=== PATIENT | female | born 1990 | race Caucasian/White ===

== ENCOUNTER 2019-05-16 01:43 | Emergency (ER) | payer OTHER ==
--- NOTE | 2019-05-16 01:47 | ERPHSYRPT ---
- History of Present Illness Time Seen by Provider: 05/16/19 01:47 Allergies/Adverse Reactions: amoxicillin Allergy (Verified 10/09/14 17:22) azithromycin Allergy (Verified 10/09/14 17:22) Penicillins Allergy (Verified 10/09/14 17:22) Home Medications: Hydrocodone Bit/Acetaminophen [Hydrocodon-Acetaminophn 10-325] 1 each PO Q4- 6HPRN PRN 10/09/14 [History] Promethazine HCl 25 mg [Phenergan 25 mg] 12.5 mg PO TIDPRN PRN 10/09/14 [ History] Valacyclovir HCl [Valtrex] 1,000 mg PO DAILY 10/09/14 [History] Hx Tetanus, Diphtheria Vaccination/Date Given: Yes (UNKNOWN) Hx Influenza Vaccination/Date Given: No Hx Pneumococcal Vaccination/Date Given: No - Past Medical History Pertinent Past Medical History: Yes Other Medical History: PLUERISY - Past Surgical History Past Surgical History: No - Social History Smoking Status: Never smoker Exposure to second hand smoke: Yes Drug Use: none Patient Lives Alone: No - Departure Referrals: GILL GUERRA [Primary Care Provider] -
[2019-05-16 02:02] VITALS: BP 105/65; O2SAT 98
--- NOTE | 2019-05-16 02:09 | ERPHSYRPT ---
- History of Present Illness Time Seen by Provider: 05/16/19 01:47 Source: patient, family Exam Limitations: clinical condition Physician History: 28 y/o white female s/p tonsillectomy and adenoidectomy 2 days ago. had sudden onset of bleeding. wanted evaluation. pt on norco tabs Timing/Duration: abrupt onset, this morning Severity: mild ENT Location: throat Prearrival Treatment: no prearrival treatment Modifying Factors: Improves With: other (swallowing hurts) Associated Symptoms: poor fluid intake, poor solids intake, sore throat Allergies/Adverse Reactions: amoxicillin Allergy (Verified 05/16/19 02:09) azithromycin Allergy (Verified 05/16/19 02:09) Penicillins Allergy (Verified 05/16/19 02:09) Home Medications: Hydrocodone Bit/Acetaminophen [[place] 7.5-325 Tablet] 1 each PO Q6H PRN PRN 05/16 [History] Omeprazole 20 mg PO DAILY 05/16/19 [History] Hx Tetanus, Diphtheria Vaccination/Date Given: Yes (UNKNOWN) Hx Influenza Vaccination/Date Given: No Hx Pneumococcal Vaccination/Date Given: No - Review of Systems Constitutional: No Symptoms Eyes: No Symptoms Ears, Nose, & Throat: Throat Pain (post op bleed) Respiratory: No Symptoms Cardiac: No Symptoms Abdominal/Gastrointestinal: No Symptoms Genitourinary Symptoms: No Symptoms Musculoskeletal: No Symptoms Skin: No Symptoms Neurological: No Symptoms Psychological: No Symptoms Endocrine: No Symptoms Hematologic/Lymphatic: No Symptoms Immunological/Allergic: No Symptoms All Other Systems: Reviewed and Negative - Past Medical History Pertinent Past Medical History: Yes Neurological History: No Pertinent History ENT History: No Pertinent History Cardiac History: No Pertinent History Respiratory History: No Pertinent History Endocrine Medical History: No Pertinent History Musculoskeletal History: No Pertinent History GI Medical History: No Pertinent History History: No Pertinent History Psycho-Social History: No Pertinent History Female Reproductive Disorders: No Pertinent History Other Medical History: PLUERISY - Past Surgical History Past Surgical History: No Neuro Surgical History: No Pertinent History Cardiac: No Pertinent History Respiratory: No Pertinent History Gastrointestinal: No Pertinent History Genitourinary: No Pertinent History Musculoskeletal: No Pertinent History Female Surgical History: No Pertinent History - Social History Smoking Status: Never smoker Exposure to second hand smoke: Yes Drug Use: none Patient Lives Alone: No - Nursing Vital Signs Nursing Vital Signs: Initial Vital Signs Temperature 97.4 F 05/16/19 01:53 Pulse Rate 99 H 05/16/19 01:53 Respiratory Rate 16 05/16/19 01:53 Blood Pressure 105/65 05/16/19 01:53 O2 Sat by Pulse Oximetry 97 05/16/19 01:53 Pain Scale Pain Intensity 6 - Physical Exam General Appearance: no apparent distress, alert, anxiety Eye Exam: bilateral eye: normal inspection, PERRL, EOMI Ear Exam: bilateral ear: auricle normal Nasal Exam: normal inspection Throat Exam: pharynx tenderness (post op tonsillectomy and adenoidectomy surgical site. no active bleeding. fibrinous exudate present) Neck Exam: normal inspection, non-tender, supple, full range of motion, trachea midline Cardiovascular/Respiratory Exam: chest non-tender Abdominal Exam: non-tender Neurologic Exam: alert, oriented x 3, cooperative, card sorter II-XII nml as tested Skin Exam: normal color, warm, dry SpO2: 98 O2 Delivery: Room Air - Course Nursing assessment & vital signs reviewed: Yes Ordered Tests: Active Orders 24 hr Category Date Time Status CBC W DIFF Stat Lab 05/16/19 02:22 Completed Medication Summary Discontinued Medications Generic Name Dose Route Start Last Admin Trade Name Freq PRN Reason Stop Dose Admin Hydrocodone Bitart/Acetaminophen 10 ml 05/16/19 02:09 Hydrocodone-Acetamin 2.5-108/5 Ml Solution PO 05/16/19 02:10 STAT STA Hydrocodone Bitart/Acetaminophen Confirm 05/16/19 02:19 Hydrocodone-Acetamin 2.5-108/5 Ml Solution Administered 05/16/19 02:20 Dose 10 ml .ROUTE .STK-MED ONE Lidocaine HCl 10 ml 05/16/19 02:09 Xylocaine Viscous 2% 20 Ml Cup PO 05/16/19 02:10 STAT ONE Lidocaine HCl Confirm 05/16/19 02:21 Xylocaine Hcl Viscous * Administered 05/16/19 02:22 Dose 1 ml .ROUTE .STK-MED ONE Lab/Rad Data: Laboratory Result Diagrams 05/16/19 02:22 Laboratory Results 05/16/19 Range/Units 02:22 WBC 7.4 (4.0-10.5) K/mm3 RBC 4.92 (4.1-5.4) M/mm3 Hgb 13.9 (12.0-16.0) gm/dl Hct 42.1 (35-47) % MCV 85.6 (78-100) fl MCH 28.3 (26-32) pg MCHC 33.0 (32-36) g/dl RDW 13.9 (11.5-14.0) % Plt Count 318 (150-450) K/mm3 MPV 9.3 (6-9.5) fl Gran % 51.4 (36.0-66.0) % Eos # (Auto) 0.03 (0-0.5) Absolute Lymphs (auto) 2.77 (1.0-4.6) Absolute Monos (auto) 0.76 (0.0-1.3) Lymphocytes % 37.5 (24.0-44.0) % Monocytes % 10.3 (0.0-12.0) % Eosinophils % 0.4 (0.00-5.0) % Basophils % 0.4 (0.0-0.4) % Absolute Granulocytes 3.80 (1.4-6.9) Basophils # 0.03 (0-0.4) - Progress Progress: improved Counseled pt/family regarding: lab results, diagnosis, need for follow-up - Departure Departure Disposition: Home Clinical Impression: Post-operative complication Condition: Stable Critical Care Time: No Referrals: GILL GUERRA [Primary Care Provider] - Additional Instructions: drink plenty of cold liquids. stop norco pills. use liquid hydrocodone for pain. call your ENT doctor this morning for further management. Prescriptions: Lidocaine HCl Viscous [XYLOCAINE HCl Viscous *] 10 ml PO Q8H PRN PRN #100 ml PRN Reason: Mild To Moderate Pain Hydrocodone Bit/Acetaminophen [Hydrocodone-Acetaminophen Soln] 10 ml PO Q6H # 120 ml
[2019-05-16] MEDS ORDERED: HYDROCODONE-ACETAMIN 2.5-108/5 ML SOLUTION ONE ×2 (02:19→02:54)
[2019-05-16] MEDS ORDERED: XYLOCAINE HCl Viscous ONE ×2 (02:21→02:54)
[2019-05-16] MEDS: HYDROCODONE-ACETAMIN 2.5-108/5 ML SOLUTION PO STA ×2 (02:23→03:09)
[2019-05-16] MEDS: XYLOCAINE VISCOUS 2% 20 ML CUP PO ONE (02:24)
[2019-05-16 02:25] LABS: BASOPHIL % 0.4 % (0.0-0.4); Basophil (Absolute #) 0.03 (0-0.4); Eosinophil % 0.4 % (0.00-5.0); Eosinophil (Absolute #) 0.03 (0-0.5); Hematocrit 42.1 % (35-47); Hemoglobin 13.9 gm/dl (12.0-16.0); Lymphocyte (Absolute #) 2.77 (1.0-4.6); Lymphocytes % 37.5 % (24.0-44.0); Mean Cell Volume 85.6 fl (78-100); Mean Corpuscular Hemoglobin 28.3 pg (26-32); Mean Platelet Volume 9.3 fl (6-9.5); Monocyte (Absolute #) 0.76 (0.0-1.3); Monocytes % 10.3 % (0.0-12.0); Neutrophil % 51.4 % (36.0-66.0); Platelet Count 318 K/mm3 (150-450); Red Blood Count 4.92 M/mm3 (4.1-5.4); Red Cell Distribution Width 13.9 % (11.5-14.0); White Blood Count 7.4 K/mm3 (4.0-10.5)
[2019-05-16] MEDS: XYLOCAINE HCl Viscous MM PRN (03:09)
[2019-05-16 03:14] VITALS: PULSE 92
== END 2019-05-16 03:20 | disposition home or self-care (01) ==
LOC: ED 01:43
DX: Z98.890 Other specified postprocedural states (principal); R04.1 Hemorrhage from throat
CPT/HCPCS: 36415; 85025; 99283; A9270-GY

== ENCOUNTER 2019-05-22 13:56 | Emergency (ER) | payer OTHER ==
[2019-05-22 15:01] LABS: INR 1.14 (0.8-3.0); PROTIME 12.9 SECONDS (9.95-12.35)
[2019-05-22 15:03] LABS: BASOPHIL % 0.4 % (0.0-0.4); Basophil (Absolute #) 0.02 (0-0.4); Eosinophil % 0.8 % (0.00-5.0); Eosinophil (Absolute #) 0.04 (0-0.5); Hematocrit 38.7 % (35-47); Hemoglobin 13.1 gm/dl (12.0-16.0); Lymphocyte (Absolute #) 1.63 (1.0-4.6); Lymphocytes % 31.8 % (24.0-44.0); Mean Cell Volume 83.6 fl (78-100); Mean Corpuscular Hemoglobin 28.3 pg (26-32); Mean Corpuscular Hgb Concent. 33.9 g/dl (32-36); Mean Platelet Volume 9.3 fl (6-9.5); Monocyte (Absolute #) 0.54 (0.0-1.3); Monocytes % 10.5 % (0.0-12.0); Neutrophil % 56.5 % (36.0-66.0); Platelet Count 280 K/mm3 (150-450); Red Blood Count 4.63 M/mm3 (4.1-5.4); Red Cell Distribution Width 13.4 % (11.5-14.0); White Blood Count 5.1 K/mm3 (4.0-10.5)
[2019-05-22 15:04] LABS: PTT 33.4 SECONDS (25.3-37.0)
[2019-05-22 15:07] LABS: ALBUMIN 3.8 g/dL (3.5-5.0); ALKALINE PHOSPHATASE 56 U/L (38-126); ANION GAP 12.2 MEQ/L (5-15); BLOOD UREA NITROGEN 6 mg/dL (7-17); CHLORIDE 100 mmol/L (98-107); Calcium 9.3 mg/dL (8.4-10.2); Carbon Dioxide 31 mmol/L (22-30); Creatinine 1 0.67 mg/dL (0.52-1.04); Glucose 115 mg/dL (74-106); Potassium 3.7 mmol/L (3.5-5.1); SGOT/AST 44 U/L (14-36); SGPT/ALT 46 U/L (0-35); SODIUM 140 mmol/L (137-145); Total Protein 7.5 g/dL (6.3-8.2)
[2019-05-22] MEDS ORDERED: HYDROCODONE-ACETAMIN 2.5-108/5 ML SOLUTION PO STA (16:20)
[2019-05-22] MEDS ORDERED: HYDROCODONE-ACETAMIN 2.5-108/5 ML SOLUTION ONE (16:23)
[2019-05-22 16:27] VITALS: BP 98/58; PULSE 75; O2SAT 97
--- NOTE | 2019-05-22 16:59 | ERPHSYRPT ---
- History of Present Illness Time Seen by Provider: 05/22/19 14:15 Source: patient Exam Limitations: clinical condition, other (patient is 10 days postop tonsillectomy and still says she is unable to speak or least indicates she can speak..) Patient Subjective Stated Complaint: sore throat Triage Nursing Assessment: Patient ambulated into ED and transferred self to bed. Patient A+O X3. Patient's skin pink, warm and dry. Patient complains of sore throat, right ear and neck pain since 3 days after her T+A surgery at in [place]. Patient has T+A surgery on May 13. Patient states the pain is constant stabbing,throbbing pain 01/19 that has gotten worse since her surgery. Patient also complains of her tongue hurting. 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) Modifying Factors: Improves With: nothing Associated Symptoms: ear pain (R), jaw pain, sore throat, difficulty swallowing , voice change (indicates she cannot speak) Allergies/Adverse Reactions: amoxicillin Allergy (Verified 05/22/19 14:18) azithromycin Allergy (Verified 05/22/19 14:18) Penicillins Allergy (Verified 05/22/19 14:18) Home Medications: Hydrocodone Bit/Acetaminophen [[place] 7.5-325 Tablet] 1 each PO Q6H PRN PRN 05/16 [History] Hx Tetanus, Diphtheria Vaccination/Date Given: Yes (UNKNOWN) Hx Influenza Vaccination/Date Given: Yes Hx Pneumococcal Vaccination/Date Given: No Immunizations Up to Date: Yes - Review of Systems Constitutional: No Fever, No Chills Eyes: No Symptoms Ears, Nose, & Throat: Ear Pain, Mouth Pain, Throat Pain, Painful Swallowing Respiratory: No Cough, No Dyspnea Cardiac: No Chest Pain, No Edema, No Syncope Abdominal/Gastrointestinal: No Abdominal Pain, No Nausea, No Vomiting, No Diarrhea Genitourinary Symptoms: No Dysuria Musculoskeletal: No Back Pain, No Neck Pain Skin: No Rash Neurological: No Dizziness, No Focal Weakness, No Sensory Changes Psychological: No Symptoms Endocrine: No Symptoms All Other Systems: Reviewed and Negative - Past Medical History Pertinent Past Medical History: Yes Neurological History: No Pertinent History ENT History: No Pertinent History Cardiac History: No Pertinent History Respiratory History: No Pertinent History Endocrine Medical History: No Pertinent History Musculoskeletal History: No Pertinent History GI Medical History: No Pertinent History History: No Pertinent History Psycho-Social History: No Pertinent History Female Reproductive Disorders: No Pertinent History Other Medical History: PLUERISY - Past Surgical History Past Surgical History: No Neuro Surgical History: No Pertinent History Cardiac: No Pertinent History Respiratory: No Pertinent History Gastrointestinal: No Pertinent History Genitourinary: No Pertinent History Musculoskeletal: No Pertinent History Female Surgical History: No Pertinent History Other Surgical History[place] [facility] [place] Smoking Status: Never smoker Exposure to second hand smoke: No Drug Use: none Patient Lives Alone: Yes - Female History Hx Last Menstrual Period: 1 month ago Hx Now: No - Nursing Vital Signs Nursing Vital Signs: Initial Vital Signs Temperature 98.0 F 05/22/19 14:18 Pulse Rate 86 05/22/19 14:18 Respiratory Rate 18 05/22/19 14:18 Blood Pressure 134/72 05/22/19 14:18 O2 Sat by Pulse Oximetry 98 05/22/19 14:18 Pain Scale Pain Intensity 7 - Physical Exam General Appearance: no apparent distress (and), alert Eye Exam: bilateral eye: PERRL, EOMI Nasal Exam: normal inspection Throat Exam: moist mucus membranes, pharynx swelling (were minimal and), tonsillar exudate (there is some small amount of eschar on the tonsillar beds), voice changes (says she can't swallow), No uvula swelling Neck Exam: supple Cardiovascular/Respiratory Exam: normal breath sounds, regular rate/rhythm Abdominal Exam: non-tender, soft Neurologic Exam: alert, oriented x 3, sensation nml, No motor deficits Skin Exam: normal color, warm, dry SpO2: 97 - CT Exams Soft Tissue Neck CT Interpretation: Tele-radiologist Report, Other (eessentially normal for postop minimal edema) Ordered Tests: Active Orders 24 hr Category Date Time Status NECK WITH CONTRAST [CT] Stat Exams 05/22/19 14:38 Ordered CBC W DIFF Stat Lab 05/22/19 14:38 Completed CMP Stat Lab 05/22/19 14:38 Completed HCG QUALITATIVE,SERUM Stat Lab 05/22/19 14:38 Completed PT INR [PROTIME WITH INR] Stat Lab 05/22/19 14:38 Completed PTT Stat Lab 05/22/19 14:38 Completed Medication Summary Discontinued Medications Generic Name Dose Route Start Last Admin Trade Name Edi PRN Reason Stop Dose Admin Hydrocodone Bitart/Acetaminophen 5 ml 05/22/19 16:20 05/22/19 16:24 Hydrocodone-Acetamin 2.5-108/5 Ml Solution PO 05/22/19 16:21 5 ml STAT STA Administration Hydrocodone Bitart/Acetaminophen Confirm 05/22/19 16:23 Hydrocodone-Acetamin 2.5-108/5 Ml Solution Administered 05/22/19 16:24 Dose 5 ml .ROUTE .[employer] Lab/Rad Data: Laboratory Result Diagrams 05/22/19 14:38 05/22/19 14:38 Laboratory Results 05/22/19 05/22/19 05/22/19 Range/Units 14:38 14:38 14:38 WBC (4.0-10.5) K/mm3 RBC (4.1-5.4) M/mm3 Hgb (12.0-16.0) gm/dl Hct (35-47) % MCV (78-100) fl MCH (26-32) pg MCHC (32-36) g/dl RDW (11.5-14.0) % Plt Count (150-450) K/mm3 MPV (6-9.5) fl Gran % (36.0-66.0) % Eos # (Auto) (0-0.5) Absolute Lymphs (auto) (1.0-4.6) Absolute Monos (auto) (0.0-1.3) Lymphocytes % (24.0-44.0) % Monocytes % (0.0-12.0) % Eosinophils % (0.00-5.0) % Basophils % (0.0-0.4) % Absolute Granulocytes (1.4-6.9) Basophils # (0-0.4) PT 12.9 H (9.95-12.35) SECONDS INR 1.14 (0.8-3.0) APTT 33.4 (25.3-37.0) SECONDS Sodium 140 (137-145) mmol/L Potassium 3.7 (3.5-5.1) mmol/L Chloride 100 (98-107) mmol/L Carbon Dioxide 31 H (22-30) mmol/L Anion Gap 12.2 (5-15) MEQ/L BUN 6 L (7-17) mg/dL Creatinine 0.67 (0.52-1.04) mg/dL Estimated GFR > 60.0 ML/MIN Glucose 115 H (74-106) mg/dL Calcium 9.3 (8.4-10.2) mg/dL Total Bilirubin 0.50 (0.2-1.3) mg/dL AST 44 H (14-36) U/L ALT 46 H (0-35) U/L Alkaline Phosphatase 56 (38-126) U/L Serum Total Protein 7.5 (6.3-8.2) g/dL Albumin 3.8 (3.5-5.0) g/dL Serum , Qual NEGATIVE (Negative) 05/22/19 Range/Units 14:38 WBC 5.1 (4.0-10.5) K/mm3 RBC 4.63 (4.1-5.4) M/mm3 Hgb 13.1 (12.0-16.0) gm/dl Hct 38.7 (35-47) % MCV 83.6 (78-100) fl MCH 28.3 (26-32) pg MCHC 33.9 (32-36) g/dl RDW 13.4 (11.5-14.0) % Plt Count 280 (150-450) K/mm3 MPV 9.3 (6-9.5) fl Gran % 56.5 (36.0-66.0) % Eos # (Auto) 0.04 (0-0.5) Absolute Lymphs (auto) 1.63 (1.0-4.6) Absolute Monos (auto) 0.54 (0.0-1.3) Lymphocytes % 31.8 (24.0-44.0) % Monocytes % 10.5 (0.0-12.0) % Eosinophils % 0.8 (0.00-5.0) % Basophils % 0.4 (0.0-0.4) % Absolute Granulocytes 2.90 (1.4-6.9) Basophils # 0.02 (0-0.4) PT (9.95-12.35) SECONDS INR (0.8-3.0) APTT (25.3-37.0) SECONDS Sodium (137-145) mmol/L Potassium (3.5-5.1) mmol/L Chloride (98-107) mmol/L Carbon Dioxide (22-30) mmol/L Anion Gap (5-15) MEQ/L BUN (7-17) mg/dL Creatinine (0.52-1.04) mg/dL Estimated GFR ML/MIN Glucose (74-106) mg/dL Calcium (8.4-10.2) mg/dL Total Bilirubin (0.2-1.3) mg/dL AST (14-36) U/L ALT (0-35) U/L Alkaline Phosphatase (38-126) U/L Serum Total Protein (6.3-8.2) g/dL Albumin (3.5-5.0) g/dL Serum , Qual (Negative) - Progress Progress: improved Counseled pt/family regarding: lab results, rad results - Departure Departure Disposition: Home Clinical Impression: Post-tonsillectomy pain Condition: Stable Critical Care Time: No Referrals: GILL GUERRA [Primary Care Provider] - Instructions: Sore Throat, Adult (DC) Additional Instructions: See your surgeon this week Prescriptions: Tramadol HCl 50 mg [Ultram 50 mg] 50 mg PO Q6H 3 Days #12 tablet MDD 4
--- NOTE | 2019-05-23 16:02 | XRAY ---
Indication: Neck and right ear pain. Status post tonsillectomy May 13, 2019. Multiple contiguous axial images obtained through the neck using 60 cc SUV 370 contrast. Comparison: None Parotid and submandibular glands are bilaterally symmetric. Scattered centimeter/subcentimeter cervical and a few submandibular lymph nodes bilaterally, none pathologically enlarged. Supra and infraglottic airway is widely patent. Normal epiglottis. Thyroid gland enhances homogeneously. Major arteries and veins are normal in course and caliber. Cervical spine intact. No suspicious bony lesions. Paranasal sinuses and mastoid air cells are clear. Base of the brain and lung apices are unremarkable. Impression: CT neck with contrast exam is negative. Comment: Preliminary interpretation was made by [facility]. No critical discrepancy. CTDI 21.09
== END 2019-05-22 17:11 | disposition home or self-care (01) ==
LOC: ED 13:56
DX: G89.18 Other acute postprocedural pain (principal); Z90.89 Acquired absence of other organs
CPT/HCPCS: 36000; 36415; 70491; 80053; 81025; 85025; 85610; 85730; 99284; A9270-GY